=== PATIENT | male | born 1975 | race Hispanic/Latino ===

== ENCOUNTER 2018-08-23 15:50 | Inpatient (IN) | payer OTHER ==
[~2018-08-23] VITALS: Ht 182.9 cm; Wt 123.1 kg
[2018-08-23 16:27] LABS: BASOPHILS % (AUTO) 1.1 % (0.0-5.0); EOSINOPHILS % (AUTO) 2.6 % (0.0-8.0); HEMATOCRIT 43.3 % (42-54); LYMPHOCYTES % (AUTO) 31.3 % (21.0-51.0); MEAN CORPUSCULAR HEMOGLOBIN 28.1 pg (27.0-33.0); MEAN CORPUSCULAR HGB CONC 33.3 g/dL (32.0-36.0); MEAN CORPUSCULAR VOLUME 84.5 fL (79-99); MONOCYTES % (AUTO) 5.1 % (3.0-13.0); NEUTROPHILS % (AUTO) 59.9 % (40.0-77.0); PLATELET COUNT (AUTO) 233 K/uL (130-400); RED BLOOD CELL COUNT(AUTO) 5.13 MIL/uL (4.50-6.20); RED CELL DISTRIBUTION WIDTH 13.6 % (11.0-15.5); WHITE BLOOD COUNT (AUTO) 8.2 K/uL (4.8-10.8)
[2018-08-23] MEDS ORDERED: SODIUM CHLORIDE 0.9% 50 ML IV ONE (16:38)
[2018-08-23] MEDS ORDERED: ZOSYN 3.375GM+NS 50ML 50 ML IV ONE (16:38)
[2018-08-23 16:41] LABS: CREATININE 1.2 mg/dL (0.5-1.5); POTASSIUM 4.6 mmol/L (3.5-5.1)
[2018-08-23 16:46] LABS: ALBUMIN 3.1 g/dL (3.5-5.0); BILIRUBIN,TOTAL 0.5 mg/dL (0.2-1.0); TOTAL PROTEIN, SERUM 7.9 g/dL (6.0-8.3)
[2018-08-23 17:30] VITALS: BP 161/112
[2018-08-23] MEDS ORDERED: ONDANSETRON HCL 4 MG/2 ML VIAL IVP PRN (19:15)
[2018-08-23] MEDS ORDERED: POTASSIUM CHLORIDE 10% ELIXIR 20 MEQ/15 ML UDCUP PO PRN (19:15)
[2018-08-23] MEDS ORDERED: IPRATROPIUM/ALBUTEROL SULFATE 3 ML SOLUTION IH PRN (19:15)
[2018-08-23] MEDS ORDERED: GUAIFENESIN SUGAR-FREE 100 MG/5 ML UDCUP PO PRN (19:15)
[2018-08-23] MEDS ORDERED: ACETAMINOPHEN 325 MG TAB PO PRN (19:15)
[2018-08-23] MEDS ORDERED: CLONIDINE HCL 0.1 MG TABLET PO PRN (19:15)
[2018-08-23] MEDS ORDERED: DIPHENHYDRAMINE HCL 25 MG CAPSULE PO PRN (19:15)
[2018-08-23] MEDS ORDERED: LIDOCAINE HCL-MPF 1% 2ML VIAL IJ PRN (19:15)
[2018-08-23] MEDS ORDERED: DiphenhydrAMINE HCL 50 MG/ML VIAL IVP PRN (19:15)
[2018-08-23] MEDS ORDERED: MORPHINE SULFATE 5 MG/ML VIAL IVP PRN (19:15)
[2018-08-23] MEDS ORDERED: GLUCAGON 1MG KIT 1 MG ML IM PRN (19:15)
[2018-08-23] MEDS ORDERED: DEXTROSE 50%-WATER 50 ML DISP.SYRIN IV PRN (19:15)
[2018-08-23] MEDS ORDERED: LACTULOSE 20 GM/30 ML UDCUP PO PRN (19:15)
[2018-08-23] MEDS ORDERED: NITROGLYCERIN 0.4 MG SL TAB SL PRN (19:15)
[2018-08-23] MEDS ORDERED: VANCOMYCIN PROTOCOL PER PHARMACY IV SCH (19:15)
[2018-08-23] MEDS ORDERED: MAG HYDROX/AL HYDROX/SIMETH ES 30 ML SUSP UDCUP PO PRN (19:15)
[2018-08-23] MEDS ORDERED: POTASSIUM CHLORIDE 20 MEQ ERTAB PO PRN (19:15)
[2018-08-23] MEDS ORDERED: SODIUM CHLORIDE 0.9% 10 ML VIAL IVP SCH (19:15)
[2018-08-23] MEDS ORDERED: POTASSIUM CHLORIDE 20MEQ/100ML 100 ML IV PRN (19:15)
[2018-08-23] MEDS ORDERED: ZOLPIDEM TARTRATE 5 MG TAB PO PRN (19:15)
[2018-08-23] MEDS ORDERED: COMPOUND IV REFRIGERATED 1 EACH IVSOLN MISC PRN (19:45)
[2018-08-23 20:00] VITALS: BP 141/96
[2018-08-23] MEDS: VANCOMYCIN 1.75 GM in SODIUM CHLORIDE 0.9% 250 ML IV SCH (20:34)
[2018-08-23] MEDS: FAMOTIDINE 20MG TAB 20 MG TAB PO SCH (20:34)
[2018-08-23] MEDS: INSULIN R PO SSI SQ SCH (21:59)
[2018-08-24] VITALS (7 sets, daily range): BP systolic 131–170; BP diastolic 80–102
[2018-08-24] MEDS: ZOSYN 3.375GM+NS 50ML 50 ML IV SCH ×3 (01:34→17:36)
[2018-08-24] MEDS: INSULIN R PO SSI SQ SCH (06:20)
[2018-08-24] MEDS ORDERED: DOCUSATE SODIUM 100 MG CAP PO PRN (08:30)
[2018-08-24] MEDS: VANCOMYCIN 1.75 GM in SODIUM CHLORIDE 0.9% 250 ML IV SCH ×2 (09:24→20:43)
[2018-08-24] MEDS: FAMOTIDINE 20MG TAB 20 MG TAB PO SCH ×2 (09:25→20:43)
[2018-08-24] MEDS: INSULIN HUMULIN R 100 UNIT/ML 3ML SQ SCH ×3 (11:29→20:44)
[2018-08-25] MEDS: ZOSYN 3.375GM+NS 50ML 50 ML IV SCH ×3 (01:15→17:25)
[2018-08-25 04:00] VITALS: BP 147/86
[2018-08-25 04:02] LABS: HEMATOCRIT 38.7 % (42-54); MEAN CORPUSCULAR HGB CONC 33.1 g/dL (32.0-36.0); MEAN CORPUSCULAR VOLUME 84.6 fL (79-99); NUCLEATED RED BLOOD CELLS 0.1 % (0.0-0.19); PLATELET COUNT (AUTO) 196 K/uL (130-400); RED BLOOD CELL COUNT(AUTO) 4.57 MIL/uL (4.50-6.20); RED CELL DISTRIBUTION WIDTH 13.5 % (11.0-15.5); WHITE BLOOD COUNT (AUTO) 8.5 K/uL (4.8-10.8)
[2018-08-25 04:20] LABS: ALBUMIN 2.7 g/dL (3.5-5.0); BILIRUBIN,TOTAL 0.7 mg/dL (0.2-1.0); CREATININE 1.2 mg/dL (0.5-1.5); POTASSIUM 4.5 mmol/L (3.5-5.1); TOTAL PROTEIN, SERUM 6.8 g/dL (6.0-8.3)
[2018-08-25] MEDS: INSULIN HUMULIN R 100 UNIT/ML 3ML SQ SCH ×4 (06:01→21:00)
[2018-08-25 07:51] VITALS: BP 156/96
[2018-08-25] MEDS: VANCOMYCIN 1.75 GM in SODIUM CHLORIDE 0.9% 250 ML IV SCH ×2 (09:01→21:13)
[2018-08-25] MEDS: FAMOTIDINE 20MG TAB 20 MG TAB PO SCH ×2 (09:02→21:13)
[2018-08-25] MEDS: ACETAMINOPHEN 325 MG TAB PO PRN ×2 (09:32→17:40)
[2018-08-25 10:41] VITALS: BP 144/88
[2018-08-25 15:32] VITALS: BP 135/94
[2018-08-25 19:24] VITALS: BP 138/93
[2018-08-25 23:40] VITALS: BP 156/96
[2018-08-26] VITALS (7 sets, daily range): BP systolic 125–152; BP diastolic 78–95
[2018-08-26] MEDS: ZOSYN 3.375GM+NS 50ML 50 ML IV SCH ×3 (01:38→18:47)
[2018-08-26 04:38] LABS: HEMATOCRIT 37.9 % (42-54); MEAN CORPUSCULAR HEMOGLOBIN 28.7 pg (27.0-33.0); MEAN CORPUSCULAR HGB CONC 34.1 g/dL (32.0-36.0); MEAN CORPUSCULAR VOLUME 84.2 fL (79-99); PLATELET COUNT (AUTO) 226 K/uL (130-400); RED CELL DISTRIBUTION WIDTH 13.5 % (11.0-15.5); WHITE BLOOD COUNT (AUTO) 7.7 K/uL (4.8-10.8)
[2018-08-26] MEDS: INSULIN HUMULIN R 100 UNIT/ML 3ML SQ SCH ×4 (07:30→20:10)
[2018-08-26] MEDS: FAMOTIDINE 20MG TAB 20 MG TAB PO SCH ×2 (10:47→20:26)
[2018-08-26] MEDS: VANCOMYCIN 1.75 GM in SODIUM CHLORIDE 0.9% 250 ML IV SCH ×2 (10:47→22:57)
[2018-08-26] MEDS: HONEY 1 APPL/ML TUBE TP SCH (15:48)
[2018-08-27] MEDS: ZOSYN 3.375GM+NS 50ML 50 ML IV SCH ×2 (01:23→11:19)
[2018-08-27 04:05] VITALS: BP 152/90
[2018-08-27] MEDS: INSULIN HUMULIN R 100 UNIT/ML 3ML SQ SCH ×2 (06:02→11:30)
[2018-08-27 07:30] VITALS: BP 127/78
[2018-08-27 11:00] VITALS: BP 148/84
[2018-08-27] MEDS: FAMOTIDINE 20MG TAB 20 MG TAB PO SCH (11:19)
[2018-08-27] MEDS: HONEY 1 APPL/ML TUBE TP SCH (11:25)
== END 2018-08-27 16:00 | disposition home or self-care (01) | DRG 603 ==
LOC: EDH 15:50 → EDHIP 15:51 → 3AH 17:34
PROVIDERS: ADMIT Family Medicine; ATTEND Family Medicine
DX: L03.116 Cellulitis of left lower limb (principal); L02.416 Cutaneous abscess of left lower limb; E11.9 Type 2 diabetes mellitus without complications; E66.01 Morbid (severe) obesity due to excess calories; Z68.36 Body mass index [BMI] 36.0-36.9, adult; Z79.899 Other long term (current) drug therapy
CPT/HCPCS: 36415; 80053; 80202; 82948; 85025; 85027; 87070; 87076; 94664; J1815; J2543; J3370; J7030

== ENCOUNTER 2018-09-08 14:03 | Emergency (ER) | payer OTHER | END 2018-09-08 14:37 | disposition home or self-care (01) | LOC: EDH 14:03 | DX: S80.12XA Contusion of left lower leg, initial encounter (principal); R42 Dizziness and giddiness; T40.695A Adverse effect of other narcotics, initial encounter; E11.9 Type 2 diabetes mellitus without complications; Z88.1 Allergy status to other antibiotic agents; Z72.0 Tobacco use; W22.03XA Walked into furniture, initial encounter; Y93.89 Activity, other specified; Y92.098 Other place in other non-institutional residence as the place of occurrence of the external cause; Y99.8 Other external cause status | CPT/HCPCS: 99281 ==